=== PATIENT | male | born 1970 | race Caucasian/White ===

== ENCOUNTER 2017-01-08 14:06 | Emergency (ER) | payer SELFPAY ==
[~2017-01-08 14:06] MED LIST: ALBUTEROL SULF8.5 GM IH; FLEXERIL10 MG PO; IMITREX25 MG PO; MOTRIN600 MG PO; NOHOMEMEDS; REGLAN10 MG PO; ZITHROMAX Z-PA250 MG PO
== END 2017-01-08 15:56 | disposition left against medical advice (07) ==
LOC: EME 14:06
DX: Z03.89 Encounter for observation for other suspected diseases and conditions ruled out (principal); Z53.21 Procedure and treatment not carried out due to patient leaving prior to being seen by health care provider

== ENCOUNTER 2017-01-10 17:47 | Emergency (ER) | payer OTHER ==
[~2017-01-10] VITALS: Ht 182.9 cm; Wt 74.8 kg
[2017-01-10] MEDS ORDERED: ULTRAM50 MG PO (19:01)
[2017-01-10] MEDS ORDERED: CLEOCIN300 MG PO (19:01)
[2017-01-10 19:11] VITALS: BP 129/82
== END 2017-01-10 19:23 | disposition home or self-care (01) ==
LOC: EME 17:47
PROC: 0H9DXZZ Drainage of Right Lower Arm Skin, External Approach (ICD-10-PCS; principal; 2017-01-10)
DX: L02.413 Cutaneous abscess of right upper limb (principal); F17.200 Nicotine dependence, unspecified, uncomplicated
CPT/HCPCS: 87070; 87075; 87077; 87147; 87186; 87205; 99281; 99284

== ENCOUNTER 2017-01-12 23:18 | Emergency (ER) | payer OTHER ==
[~2017-01-12] VITALS: Ht 182.9 cm; Wt 75.5 kg
[~2017-01-12 23:18] MED LIST changes: +CLEOCIN300 MG PO; +ULTRAM50 MG PO
[2017-01-13] MEDS ORDERED: NORCO 5/3251 TABLET PO (00:55)
[2017-01-13 01:10] VITALS: BP 138/95
== END 2017-01-13 01:10 | disposition home or self-care (01) ==
LOC: EME 23:18
DX: L02.413 Cutaneous abscess of right upper limb (principal); B95.8 Unspecified staphylococcus as the cause of diseases classified elsewhere; Z48.01 Encounter for change or removal of surgical wound dressing; F17.200 Nicotine dependence, unspecified, uncomplicated
CPT/HCPCS: 99281; 99284

== ENCOUNTER 2017-04-15 22:27 | Emergency (ER) | payer OTHER ==
[~2017-04-15] VITALS: Ht 182.9 cm; Wt 75.2 kg
[~2017-04-15 22:27] MED LIST changes: +NORCO 5/3251 TABLET PO
[2017-04-15] MEDS ORDERED: BACTRIM,SEPT1 TABLET PO (23:19)
[2017-04-15 23:54] VITALS: BP 147/93
== END 2017-04-15 23:57 | disposition home or self-care (01) ==
LOC: EME 22:27
PROC: 0H97XZZ Drainage of Abdomen Skin, External Approach (ICD-10-PCS; principal; 2017-04-15)
DX: S30.861A Insect bite (nonvenomous) of abdominal wall, initial encounter (principal); L02.214 Cutaneous abscess of groin; W57.XXXA Bitten or stung by nonvenomous insect and other nonvenomous arthropods, initial encounter; I10 Essential (primary) hypertension; F17.200 Nicotine dependence, unspecified, uncomplicated

== ENCOUNTER 2017-06-17 04:46 | Emergency (ER) | payer OTHER ==
[~2017-06-17] VITALS: Ht 182.9 cm; Wt 74.1 kg
[~2017-06-17 04:46] MED LIST changes: +BACTRIM,SEPT1 TABLET PO
[2017-06-17 07:06] VITALS: BP 138/88
== END 2017-06-17 07:07 | disposition home or self-care (01) ==
LOC: EME 04:46
DX: G43.909 Migraine, unspecified, not intractable, without status migrainosus (principal); Z91.14 Patient's other noncompliance with medication regimen; I10 Essential (primary) hypertension; F17.200 Nicotine dependence, unspecified, uncomplicated
CPT/HCPCS: 99281; 99284; J2550; J3030

== ENCOUNTER → 2017-06-21 | Outpatient (CLI) | payer OTHER | END | disposition home or self-care (01) | LOC: RES 05-27 14:00 | DX: J98.8 Other specified respiratory disorders (principal); R94.2 Abnormal results of pulmonary function studies; J44.9 Chronic obstructive pulmonary disease, unspecified | CPT/HCPCS: 94060; 94727; 94729 ==

== ENCOUNTER 2017-09-30 08:13 | Emergency (ER) | payer OTHER ==
[~2017-09-30] VITALS: Ht 177.8 cm; Wt 73.5 kg
[2017-09-30] MEDS ORDERED: FIORICET 50-301 EAC1 PO (11:46)
[2017-09-30 12:15] VITALS: BP 145/104
== END 2017-09-30 12:17 | disposition home or self-care (01) ==
LOC: EME 08:13
DX: G43.909 Migraine, unspecified, not intractable, without status migrainosus (principal); I10 Essential (primary) hypertension; F17.200 Nicotine dependence, unspecified, uncomplicated
CPT/HCPCS: 99281; 99284; J1885; J2765; J7030

== ENCOUNTER 2017-11-30 16:19 | Emergency (ER) | payer OTHER ==
[~2017-11-30] VITALS: Ht 182.9 cm; Wt 73.8 kg
[~2017-11-30 16:19] MED LIST changes: +FIORICET 50-301 EAC1 PO
[2017-11-30] MEDS ORDERED: BENADRYL50 MG PO (19:43)
[2017-11-30] MEDS ORDERED: ZANTAC150 MG PO (19:43)
[2017-11-30] MEDS ORDERED: PREDNISONE20 MG PO (19:43)
[2017-11-30 19:52] VITALS: BP 123/81
== END 2017-11-30 20:25 | disposition home or self-care (01) ==
LOC: EME 16:19
DX: L50.9 Urticaria, unspecified (principal); I10 Essential (primary) hypertension; F17.200 Nicotine dependence, unspecified, uncomplicated
CPT/HCPCS: 99281; 99284; J7512

== ENCOUNTER → 2017-12-20 | Outpatient (CLI) | payer OTHER ==
[~2017-12-20] MED LIST changes: +BENADRYL50 MG PO; +PREDNISONE20 MG PO; +ZANTAC150 MG PO
== END | disposition home or self-care (01) ==
LOC: RES 12-06 13:00 → PULREH 12-06 13:00 → RES 12-11 11:00
DX: Z01.811 Encounter for preprocedural respiratory examination (principal); J98.4 Other disorders of lung
CPT/HCPCS: 94060; 94726; 94729

== ENCOUNTER 2018-01-24 19:43 | Emergency (ER) | payer OTHER ==
[~2018-01-24] VITALS: Ht 182.9 cm; Wt 75.1 kg
[2018-01-24 21:01] VITALS: BP 154/99
== END 2018-01-24 21:06 | disposition home or self-care (01) ==
LOC: EME 19:43
DX: G43.909 Migraine, unspecified, not intractable, without status migrainosus (principal); I10 Essential (primary) hypertension; T46.5X6A Underdosing of other antihypertensive drugs, initial encounter; Z91.14 Patient's other noncompliance with medication regimen; F17.200 Nicotine dependence, unspecified, uncomplicated
CPT/HCPCS: 99281; 99284